=== PATIENT | female | born 1985 | race Caucasian/White ===

== ENCOUNTER 2016-07-05 14:44 | Emergency (ER) | payer OTHER ==
[2016-07-05 15:22] VITALS: BP 121/78; PULSE 93; RESP 18; TEMP 99.4
--- NOTE | 2016-07-05 15:43 | XR ---
EXAMINATION TYPE: XR ankle complete RT DATE OF EXAM: 07/05/2016 3:33 PM COMPARISON: NONE HISTORY: Fell down the stairs. Pain TECHNIQUE: 3 views FINDINGS: There is a small 5 mm nondisplaced chip fracture of the tip of the distal fibula. There is lateral soft tissue swelling. Ankle mortise is anatomic. There is mild calcaneal spurring. IMPRESSION: Chip fracture of the distal fibula.
--- NOTE | 2016-07-05 15:46 | XR ---
EXAMINATION TYPE: XR foot complete RT DATE OF EXAM: 07/05/2016 3:34 PM COMPARISON: NONE HISTORY: Fell down the stairs. Pain. TECHNIQUE: 3 views FINDINGS: There are transverse fractures of the necks of the third fourth and fifth metatarsal heads. There is no dislocation. There is a plantar calcaneal spur. IMPRESSION: Multiple metatarsal head fractures.
--- NOTE | 2016-07-05 15:50 | ED ---
Lower Extremity Injury HPI - General Chief Complaint: Extremity Injury, Lower Stated Complaint: rt foot injury Time Seen by Provider: 07/05/16 15:26 Source: patient, RN notes reviewed Mode of arrival: wheelchair Limitations: no limitations - History of Present Illness Initial Comments: 31-year-old female presents emergency Department chief complaint right foot and ankle injury. Patient states she's going on the stairs slipped twisting her ankle and injuring her distal foot. Patient states that it is very painful unable to ambulate. Patient denies any head injury no LOC. Patient offers no other complaints. - Related Data Home Medications Medication Instructions Recorded Confirmed Omeprazole [Omeprazole] 20 mg PO DAILY PRN 03/06/15 06/03/15 Sertraline [Zoloft] 50 mg PO HS 05/29/15 06/03/15 Previous Rx's Medication Instructions Recorded Acetaminophen-Codeine 300-30mg 2 tab PO Q6H PRN #30 tablet 06/03/15 [Tylenol #3] Hydrocodone/Acetaminophen [[place] 1 tab PO Q6HR PRN #20 tab 07/05/16 5-325] Allergies Allergy/AdvReac Type Severity Reaction Status Date / Time nitrofurantoin AdvReac numbness,ti Verified 07/05/16 15:22 [From Macrobid] ngling nitrofurantoin AdvReac numbness,ti Verified 07/05/16 15:22 macrocrystalline ngling [From Macrobid] Review of Systems ROS Statement: Those systems with pertinent positive or pertinent negative responses have been documented in the HPI. ROS Other: All systems not noted in ROS Statement are negative. Past Medical History Past Medical History: No Reported History History of Any Multi-Drug Resistant Organisms: MRSA Date of last positivie culture/infection: 2008 MDRO Source:: right groin Past Surgical History: Tubal Ligation Past Psychological History: Anxiety Smoking Status: Never smoker Past Alcohol Use History: Rare Past Drug Use History: None Reported - Past Family History Mother Additional Family Medical History / Comment(s): hypoglycemia General Exam Limitations: no limitations General appearance: alert, in no apparent distress Respiratory exam: Present: normal lung sounds bilaterally. Absent: respiratory distress, wheezes, rales, rhonchi, stridor Cardiovascular Exam: Present: regular rate, normal rhythm, normal heart sounds. Absent: systolic murmur, diastolic murmur, rubs, gallop, clicks Extremities exam: Present: other (Right foot there is tenderness to the distal aspect, no obvious deformity mild swelling no ecchymosis neurovascular intact tenderness over right lateral malleolus) Course Vital Signs 07/05/16 15:19 Temperature 99.4 F Pulse Rate 93 Respiratory 18 Rate Blood Pressure 121/78 O2 Sat by Pulse 99 Oximetry Procedures - Orthopedic Splinting/Casting Injury #1 Side: right Lower Extremity Injury Location: ankle, foot Lower Extremity Immobilizer: posterior splint Other Orthopedic Equipment: crutches Additional Comments: Patient's leg was neurovascularly intact before and after procedure Medical Decision Making - Medical Decision Making 31-year-old female presents emergency department for right foot and ankle injury. Patient has fracture of her second third and fourth digit along with right fibula fracture. Patient was placed on short leg splint. Patient has no evidence of Lisfranc fracture. Patient will be discharged follow-up with orthopedics patient was given prescription for crutches. Disposition Clinical Impression: Foot fracture, right, Ankle fracture, right Disposition: HOME SELF-CARE Condition: Stable Instructions: Foot Fracture in Adults (ED) Additional Instructions: Follow-up with orthopedics as directed.Please return to the Emergency Department if symptoms worsen or any other concerns. Prescriptions: Hydrocodone/Acetaminophen [[place] 5-325] 1 tab PO Q6HR PRN #20 tab PRN Reason: Pain Referrals: Doc Rocha MD [Primary Care Provider] - 1-2 days Deng Tran MD [STAFF PHYSICIAN] - 1-2 days Time of Disposition: 15:50
== END 2016-07-05 16:11 | disposition home or self-care (01) ==
LOC: EC 14:44
DX: S82.831A Other fracture of upper and lower end of right fibula, initial encounter for closed fracture (principal); S92.331A Displaced fracture of third metatarsal bone, right foot, initial encounter for closed fracture; S92.341A Displaced fracture of fourth metatarsal bone, right foot, initial encounter for closed fracture; S92.351A Displaced fracture of fifth metatarsal bone, right foot, initial encounter for closed fracture; F41.9 Anxiety disorder, unspecified; Z88.1 Allergy status to other antibiotic agents; X50.1XXA Overexertion from prolonged static or awkward postures, initial encounter
CPT/HCPCS: 29515; 99283

== ENCOUNTER → 2016-07-17 | Day surgery (SDC) | payer OTHER ==
[2016-07-15 09:29] VITALS: BMI 38.0
[~2016-07-17] MED LIST: DEXAMETHASONE SOD PHOSPHATE 10 MG/ML 1 ML VIAL IV ONE; HYDROcodone/APAP 5-325MG 1 EACH TAB PO ONE; HYDROcodone/APAP 5-325MG 1 EACH TAB PO PRN; HYDROmorphone (PF) 1 MG/ML ONE; HYDROmorphone 1 MG/ML 1 ML SYRINGE IVP PRN; LACTATED RINGERS 1,000 ML IV ONE; LACTATED RINGERS 1,000 ML IV SCH; LIDOCAINE 1% 20 ML VIAL (10MG/ML) FOR IV START INTRADERMA ONE; LIDOCAINE 1% 20 ML VIAL (10MG/ML) FOR IV START INTRADERMA PRN; LIDOCAINE 1% INJ 10MG/ML (20 ML MDV) ONE; MEPERIDINE 50 MG/ML SYRINGE IVP ONE; MIDAZOLAM 2 MG/2 ML VIAL IV PRN; MIDAZOLAM 2 MG/2 ML VIAL ONE; PROPOFOL 10 MG/ML 20 ML VIAL IV ONE; SCOPOLAMINE 1.5MG/72HR PATCH TRANSDERM ONE; SUCCINYLCHOLINE CHLORIDE 100 MG/5 ML SYR IV ONE; ceFAZolin 2 GM in SODIUM CHLORIDE 0.9% 100 ML IVPB ONE; diphenhydrAMINE 50 MG/ML 1 ML VIAL ONE; fentaNYL (PF) 50 MCG/ML 2 ML AMP ONE
[2016-07-17] MEDS: ONDANSETRON 4 MG/2 ML VIAL IVP ONE ×2 (11:35→15:32)
[2016-07-17] MEDS: HYDROmorphone 1 MG/ML 1 ML SYRINGE IVP PRN ×2 (13:35→15:28)
--- NOTE | 2016-07-17 14:46 | FL ---
EXAMINATION TYPE: FL guidance operating room, XR foot limited RT DATE OF EXAM: 07/17/2016 2:41 PM CLINICAL HISTORY: Right foot fracture third through fifth toes. TECHNIQUE: Fluoroscopy. Intraoperative limited views right foot. COMPARISON: Right foot x-ray July 05, 2016.. FINDINGS: Fluoroscopic guidance was provided during closed reduction external fixation procedure per formed by Dr. Smith. A total of 58 seconds of fluoroscopic time was utilized during the procedure and 2 spot intraoperative images are acquired. Intraoperative images acquired show placement of 3 external K wires through oblique fracture deformit ies of distal third through fifth metatarsals. Improved alignment is seen after reduction and fixatio n. IMPRESSION: As Above.
[2016-07-17 15:01] VITALS: TEMP 99.6
[2016-07-17 17:13] VITALS: BP 139/83; PULSE 122; RESP 18
--- NOTE | 2016-07-17 18:27 | P.OP ---
Date of Procedure: 07/17/16 Preoperative Diagnosis: Closed, displaced right third, fourth, and fifth metatarsal neck fractures Postoperative Diagnosis: Same Procedure(s) Performed: 1. Percutaneous reduction and pinning of right third metatarsal neck fracture 2. Percutaneous reduction and pinning of right fourth metatarsal neck fracture 3. Percutaneous reduction and pinning of right fifth metatarsal neck fracture Anesthesia: SARA Surgeon: Zeyad Smith Etiquette Coach #1: Maria E Ponce Estimated Blood Loss (ml): 25 IV fluids (ml): 600 Pathology: none sent Condition: stable Disposition: PACU Indications for Procedure: The patient is a 31-year-old female who was previously healthy presented to my office a week and a half ago following a fall down stairs. She sustained isolated injuries to her right ankle and foot. She was seen in the ER where x- rays showed a nondisplaced distal fibula fracture and third, fourth, and fifth metatarsal neck fractures. The patient was placed in a splint and follow-up was arranged in my office. On review of the x-rays in our office the metatarsal neck fractures were angulated and displaced, particularly the fourth and fifth metatarsal neck fractures. I do lengthy discussion with the patient and her on treatment. Due to the patient's young age, multiple metatarsal neck fractures, and angulation greater than 10 of her fourth and fifth metatarsal neck fracture I recommended percutaneous reduction and pinning. We discussed the potential risks and complication of surgery including but not limited to risk of anesthesia, risk of delayed wound healing, risk of superficial infection, risk of deep infection, risk of pin site infection, risk of fracture malunion, risk of fracture nonunion, risk of chronic pain, risk of chronic swelling, risk of need for further surgery, and generalized to satisfaction with surgery. The patient understands these risks and provided her verbal and written consent to go forward with surgery. Description of Procedure: The patient was identified in preoperative holding and the correct operative extremity was marked with my initials. The consent was reviewed and all questions were answered. The patient was then brought back to the operating room. She was transferred from the [facility] onto the operating room table and a general anesthetic was administered. A tourniquet was applied to the proximal aspect of the right leg but was not inflated at all during the procedure. All bony prominences were well-padded. Preoperative antibiotics were administered. The patient's right leg was then prepped and draped in standard sterile fashion. Prior to starting surgery timeout was performed identifying the correct patient, operative extremity, and procedure. A sterile radiolucent triangle was placed under the knee and a stack of towels placed under the foot to facilitate intraoperative C-arm imaging. I began by addressing the fifth metatarsal neck fracture. C-arm was brought into marked out the distal fifth metatarsal. A stab incision was made over the lateral aspect of the fifth metatarsal head. A dental pick was placed through the stab incision to use as a reduction aid. Once the fifth metatarsal head was aligned with the shaft a 0.0625 K wire was placed under the plantar aspect of the fifth toe and centered on the metatarsal head. The K wire was driven through the metatarsal head, across the fracture and into the fifth metatarsal shaft. The position of the K wire was checked on AP, oblique, and lateral C- arm shots. The fourth metatarsal neck fracture was then addressed. A stab incision was made in the webspace between the fourth and fifth toe. A dental pick was used to percutaneously reduce the fourth metatarsal head fragment. Once it was aligned with the shaft a 0.0625 K wire was placed under the plantar aspect of the fourth toe and centered on the metatarsal head. Under direct C-arm visualization the K wire was driven across the fracture site and into the fourth metatarsal shaft. C-arm was used to verify reduction in the AP, oblique , and lateral shots. The third metatarsal neck fracture was then addressed. A stab incision was made in the webspace between the third and fourth toe. A dental pick was used to percutaneously reduce the third metatarsal head fragment. Once it was aligned with the shaft a 0.0625 K wire was placed under the plantar aspect of the third toe and centered on the metatarsal head. Under direct C-arm visualization the K wire was driven across the fracture site and into the third metatarsal shaft. C-arm was used to verify reduction in the AP, oblique, and lateral shots. After final C-arm shots were taken to verify reduction of the fractures and position of the K wires the K wires were bent and cut outside the skin. Protective caps were placed over all 3 K wires. The stab incisions over the dorsal aspect of the foot were closed using interrupted 3-0 nylon horizontal mattress stitches. A sterile dressing consisting of Betadine soaked Adaptic, 4 x 4, and web roll was applied. The patient was placed in a bulky Hector type splint. She was awoken from her anesthetic and transferred to the [facility]. She was brought to PACU in stable condition having tolerated the procedure well.
== END | disposition home or self-care (01) ==
LOC: OR 10:46
PROVIDERS: ATTEND Orthopaedic Surgery
DX: S92.331A Displaced fracture of third metatarsal bone, right foot, initial encounter for closed fracture (principal); S92.341A Displaced fracture of fourth metatarsal bone, right foot, initial encounter for closed fracture; S92.351A Displaced fracture of fifth metatarsal bone, right foot, initial encounter for closed fracture; W10.8XXA Fall (on) (from) other stairs and steps, initial encounter; S82.64XD Nondisplaced fracture of lateral malleolus of right fibula, subsequent encounter for closed fracture with routine healing; W10.8XXD Fall (on) (from) other stairs and steps, subsequent encounter; Z79.1 Long term (current) use of non-steroidal anti-inflammatories (NSAID); Z79.891 Long term (current) use of opiate analgesic; Z88.1 Allergy status to other antibiotic agents
CPT/HCPCS: 81025; 73620; 28476 ×3; C1713; J2250; J1200; J1100; J2175; J0690; J2405; J2001; J3010; J1170; J0330; J2704

== ENCOUNTER 2019-03-19 01:13 | Emergency (ER) | payer OTHER ==
[2019-03-19 01:30] VITALS: RESP 18
--- NOTE | 2019-03-19 01:48 | XR ---
EXAMINATION TYPE: XR chest 2V DATE OF EXAM: 03/19/2019 COMPARISON: NONE HISTORY: Cough TECHNIQUE: 2 views FINDINGS: Heart and mediastinum are normal. Lungs are clear. Diaphragm is normal. Bony thorax appears normal. IMPRESSION: Normal chest
[2019-03-19] MEDS ORDERED: predniSONE 50 MG TAB PO STA (03:19)
--- NOTE | 2019-03-19 03:19 | ED ---
General Adult HPI - General Chief complaint: Upper Respiratory Infection Stated complaint: URI Time Seen by Provider: 03/19/19 02:56 Source: patient, RN notes reviewed, old records reviewed Mode of arrival: ambulatory Limitations: no limitations - History of Present Illness Initial comments: 34-year-old female patient presents to the. Chief complaint approximately 2 weeks of cough, waxing and waning fevers congestion. Patient recently completed a course of amoxicillin for possible pneumonia. Denies a chance of being secondary tubal ligation. Denies any risk factors for PE. The force that her back and her chest hurt while coughing, denies any chest pain at rest. Denies any other complaints at this time. Systemic: Pt denies fatigue, fever/chills, rash. Pt denies weakness, night sweats, weight loss. Neuro: Pt denies headache, visual disturbances, syncope or pre-syncope. HEENT: Pt denies ocular discharge or irritation, otalgia, rhinorrhea, pharyngitis or notable lymphadenopathy. Cardiopulmonary: Pt denies chest pain, SOB, heart palpitations, dyspnea on exertion. Abdominal/GI: Pt denies abdominal pain, n/v/d. : Pt denies dysuria, burning w/ urination, frequency/urgency. Denies new onset urinary or bowel incontinence. MSK: Pt denies myalgia, loss of strength or function in extremities. Neuro: Pt denies new onset weakness, paresthesias. - Related Data Home Medications Medication Instructions Recorded Confirmed Ibuprofen [Motrin] 600 mg PO Q6HR PRN 07/15/16 07/15/16 Previous Rx's Medication Instructions Recorded Hydrocodone/Acetaminophen [[place] 1 tab PO Q6HR PRN #20 tab 07/05/16 5-325] Docusate [Colace] 100 mg PO BID #28 capsule 07/17/16 HYDROcodone/APAP 5-325MG [[place] 1 - 2 tab PO Q6HR PRN #50 tab 07/17/16 5-325] Sulfamethox-Tmp 800-160Mg [Bactrim 1 tab PO Q12HR #28 tab 07/17/16 DS 800-160 mg] Albuterol Inhaler [Ventolin Hfa 1 - 2 puff INHALATION Q4-6H PRN #1 03/19/19 Inhaler] inhaler predniSONE 50 mg PO DAILY #4 tab 03/19/19 Allergies Allergy/AdvReac Type Severity Reaction Status Date / Time nitrofurantoin AdvReac numbness,ti Verified 07/15/16 09:10 [From Macrobid] ngling nitrofurantoin AdvReac numbness,ti Verified 07/15/16 09:10 macrocrystalline ngling [From Macrobid] Review of Systems ROS Statement: Those systems with pertinent positive or pertinent negative responses have been documented in the HPI. ROS Other: All systems not noted in ROS Statement are negative. Past Medical History Past Medical History: GERD/Reflux, Musculoskeletal Disorder Additional Past Medical History / Comment(s): FRACTURES 3,4,5 TOES RT FOOT. History of Any Multi-Drug Resistant Organisms: MRSA Date of last positivie culture/infection: 2008 MDRO Source:: right groin Past Surgical History: Tubal Ligation Past Anesthesia/Blood Transfusion Reactions: Family History of Problems w/ Anesthesia Additional Past Anesthesia/Blood Transfusion Reaction / Comment(s): MOTHER HAS SEVERE PONV. Past Psychological History: Depression Smoking Status: Never smoker - Past Family History Father Family Medical History: Cancer Mother Additional Family Medical History / Comment(s): hypoglycemia General Exam - General Exam Comments Initial Comments: Constitutional: NAD, AOX3, Pt has pleasant affect. HEENT: NC/AT, trachea midline, neck supple, no lymphadenopathy. Posterior pharynx non erythematous, without exudates. External ears appear normal, without discharge. Mucous membranes moist. Eyes PERRLA, EOM intact. There is no scleral icterus. No pallor noted. Cardiopulmonary: RRR, no murmurs, rubs or gallops, no JVD noted. Lungs CTAB in anterior and posterior grove. No peripheral edema. Abdominal exam: Abdomen soft and non-distended. Abdomen non-tender to palpation in all 4 quadrants. Bowel sounds active in LLQ. No hepatosplenomegaly. No ecchymosis Neuro: CN II-XII grossly intact. No nuchal rigidity. No raccon eyes, no salas sign, no hemotympanum. No cervical spinal tenderness. MSK: No posterior calf tenderness bilaterally, homans sign negative bilaterally. Posterior tibialis and radial pulse +2 bilaterally. Sensation intact in upper and lower extremities. Full active ROM in upper and lower extremities, 5/5 stregnth. Limitations: no limitations Course Vital Signs 03/19/19 01:26 Temperature 98.6 F Pulse Rate 91 Respiratory 18 Rate Blood Pressure 153/92 O2 Sat by Pulse 97 Oximetry Medical Decision Making - Medical Decision Making 34-year-old female patient presents to ED for chief complaint approximately 2 weeks of cough. Patient will signs are stable, afebrile. Physical exam didn't display acute pathology. Lungs clear to auscultation bilaterally. Chest x-ray is negative, influenza negative. Patient is PERC negative. Patient likely dealing with a viral bronchitis examined him. We'll discharge with steroids and when necessary breathing treatments. Will follow up with primary care for a trial return to ER if condition worsens. Case discussed with Dr. Rivera. - Lab Data Lab Results 03/19/19 Range/Units 01:30 Influenza Type A RNA Not Detected (Not Detectd) Influenza Type B (PCR) Not Detected (Not Detectd) Disposition Clinical Impression: Cough, Bronchitis Disposition: HOME SELF-CARE Condition: Stable Instructions (If sedation given, give patient instructions): Acute Cough (ED), Acute Bronchitis (ED) Additional Instructions: Take medications as directed. Use inhaler as needed. Follow-up with primary care provider tomorrow. Return to ER if condition worsens. Prescriptions: predniSONE 50 mg PO DAILY #4 tab Albuterol Inhaler [Ventolin Hfa Inhaler] 1 - 2 puff INHALATION Q4-6H PRN #1 inhaler PRN Reason: Cough Is patient prescribed a controlled substance at d/c from ED?: No Referrals: Doc Rocha MD [Primary Care Provider] - 1-2 days
[2019-03-19 03:21] VITALS: BP 138/87; PULSE 89; TEMP 98.1
== END 2019-03-19 03:37 | disposition home or self-care (01) ==
LOC: EC 01:13
DX: J40 Bronchitis, not specified as acute or chronic (principal); Z88.1 Allergy status to other antibiotic agents
CPT/HCPCS: 87502; 71046; 99284; J7512

== ENCOUNTER 2022-09-09 15:06 | Inpatient (IN) | payer OTHER ==
[2022-09-09] MEDS ORDERED: SODIUM CHLORIDE 0.9% 1,000 ML IV STA (18:10)
[2022-09-09 18:54] LABS: Basophils # (A) 0.1 k/uL (0-0.2); Basophils % (A) 0 %; Eosinophils # (A) 0.1 k/uL (0-0.7); Eosinophils % (A) 1 %; HCT 43.1 % (34.0-46.0); HGB 14.5 gm/dL (11.4-16.0); Lymphocytes # (A) 1.5 k/uL (1.0-4.8); Lymphocytes % (A) 11 %; MCH 28.6 pg (25.0-35.0); MCHC 33.6 g/dL (31.0-37.0); MCV 85.2 fL (80.0-100.0); Mean Platelet Volume 7.3; Monocytes # (A) 0.3 k/uL (0-1.0); Monocytes % (A) 2 %; Neutrophils # (A) 12.1 k/uL (1.3-7.7); Neutrophils % (A) 86 %; Platelet Count 250 k/uL (150-450); RBC 5.06 m/uL (3.80-5.40); RDW 13.6 % (11.5-15.5)
[2022-09-09 19:08] LABS: ALT 28 U/L (4-34); AST 31 U/L (14-36); Acetaminophen <10.0 ug/mL; African American GFR (CKD) >90 (>60 ml/min/1.73 sqM); Albumin 4.8 g/dL (3.5-5.0); Alcohol <10 mg/dL; Alkaline Phosphatase 97 U/L (38-126); Anion Gap 13 mmol/L; Blood Urea Nitrogen 16 mg/dL (7-17); Calcium 9.5 mg/dL (8.4-10.2); Carbon Dioxide 23 mmol/L (22-30); Chloride 103 mmol/L (98-107); Glucose 98 mg/dL (74-99); Magnesium 2.3 mg/dL (1.6-2.3); Non-African American GFR(CKD) 89 (>60 ml/min/1.73 sqM); Potassium 3.9 mmol/L (3.5-5.1); Salicylate <1.0 mg/dL; Sodium 139 mmol/L (137-145); Total Bilirubin 0.4 mg/dL (0.2-1.3); Total Protein 8.2 g/dL (6.3-8.2)
--- NOTE | 2022-09-09 19:14 | CT ---
EXAMINATION TYPE: CT brain wo con CT DLP: 1098.4 mGycm, Automated exposure control for dose reduction was used. DATE OF EXAM: 09/09/2022 6:25 PM COMPARISON: None. CLINICAL INDICATION:Female, 37 years old with history of seizure activity, Seizure activity TECHNIQUE: Brain: Axial CT images of the brain were obtained with coronal and sagittal reformats created and rev iewed. Contrast used: None. Oral contrast used: None. FINDINGS: Brain: Extra-axial spaces: No abnormal extra-axial fluid collections. Ventricular system: Within normal limits Cerebral parenchyma: No acute intraparenchymal hemorrhage or mass effect. The daniel-white junction is well differentiated. Cerebellum: Unremarkable. Mass effect: No evidence of midline shift. Intracranial vasculature: unremarkable Soft tissues: Normal. Calvarium/osseous structures: No depressed skull fracture. Paranasal sinuses and mastoid air cells: Mild scattered paranasal sinus disease. Visualized orbits: Orbital contents are intact. IMPRESSION: No acute intracranial process.
[2022-09-09 20:18] LABS: Amphetamine Screen,Urine Not Detected (NotDetected); Barbiturate Screen,Urine Not Detected (NotDetected); Benzodiazepines Screen,Urine Detected (NotDetected); Cocaine Screen,Urine Not Detected (NotDetected); Methadone Screen, Urine Not Detected (NotDetected); Opiate Screen,Urine Not Detected (NotDetected); Oxycodone Screen, Urine Not Detected (NotDetected); Phencyclidine Screen,Urine Not Detected (NotDetected); Tricyclic Antidepressant,Urine Not Detected (NotDetected); Urn Cannabinoid Scrn Not Detected (NotDetected)
--- NOTE | 2022-09-09 20:24 | ED ---
Seizure HPI - General Chief Complaint: Seizure Stated Complaint: seizure Time Seen by Provider: 09/09/22 17:26 Source: patient, RN notes reviewed, old records reviewed Mode of arrival: ambulatory Limitations: no limitations - History of Present Illness Initial Comments: This is a 37-year-old female DF for evaluation patient resents today for evaluation regards to seizure history of no prior seizures. Patient presents today for first seizure, patient is on multiple medications that could lead her to have seizures per patient. Patient has no other complaints. Patient has had some voluntary or involuntary movements lately. Family medical with concern for possible seizures. Patient didn't bite her tongue today, seizure was witnessed by her son Complaint: seizure, shaking -: minutes(s) Description of Episode: loss of consciousness, tonic-clonic movement, post-event confusion, other (Tongue laceration) -: minutes(s) Witnessed: yes - by bystander Trauma: Yes Seizure History: none Possible Precipitating Event: none Associated Symptoms: confusion Treatments Prior to Arrival: none - Related Data Home Medications Medication Instructions Recorded Confirmed buPROPion XL [Wellbutrin XL] 150 mg PO HS 01/19/22 09/09/22 Albuterol Inhaler [Ventolin Hfa 1 - 2 puff INHALATION RT-Q6H PRN 09/09/22 09/09/22 Inhaler] Cetirizine HCl 10 mg PO HS 09/09/22 09/09/22 FLUoxetine HCL [PROzac] 40 mg PO HS 09/09/22 09/09/22 Montelukast [Singulair] 10 mg PO HS 09/09/22 09/09/22 Semaglutide [Wegovy] 0.5 mg SQ FR 09/09/22 09/09/22 Allergies Allergy/AdvReac Type Severity Reaction Status Date / Time sulfamethoxazole Allergy Rash/Hives Verified 09/09/22 19:51 [From Bactrim] trimethoprim [From Bactrim] Allergy Rash/Hives Verified 09/09/22 19:51 latex AdvReac Itching Verified 09/09/22 19:51 nitrofurantoin AdvReac numbness,ti Verified 09/09/22 19:51 [From Macrobid] ngling nitrofurantoin AdvReac numbness,ti Verified 09/09/22 19:51 macrocrystalline ngling [From Macrobid] Review of Systems ROS Statement: Those systems with pertinent positive or pertinent negative responses have been documented in the HPI. ROS Other: All systems not noted in ROS Statement are negative. Past Medical History Past Medical History: GERD/Reflux, Musculoskeletal Disorder Additional Past Medical History / Comment(s): FRACTURES 3,4,5 TOES RT FOOT. History of Any Multi-Drug Resistant Organisms: MRSA Date of last positivie culture/infection: 2008 MDRO Source:: right groin Past Surgical History: Orthopedic Surgery, Tubal Ligation Additional Past Surgical History / Comment(s): reconstrution of rt foot Past Anesthesia/Blood Transfusion Reactions: Family History of Problems w/ Anesthesia Additional Past Anesthesia/Blood Transfusion Reaction / Comment(s): MOTHER HAS SEVERE PONV. Past Psychological History: Anxiety, Depression Smoking Status: Never smoker - Past Family History Father Family Medical History: Cancer Mother Additional Family Medical History / Comment(s): hypoglycemia General Exam Limitations: no limitations General appearance: alert, in no apparent distress Head exam: Present: atraumatic, normocephalic, normal inspection Eye exam: Present: normal appearance, PERRL, EOMI. Absent: scleral icterus, conjunctival injection, periorbital swelling ENT exam: Present: normal exam, mucous membranes moist Neck exam: Present: normal inspection. Absent: tenderness, meningismus, lym phadenopathy Respiratory exam: Present: normal lung sounds bilaterally. Absent: respiratory distress, wheezes, rales, rhonchi, stridor Cardiovascular Exam: Present: regular rate, normal rhythm, normal heart sounds. Absent: systolic murmur, diastolic murmur, rubs, gallop, clicks GI/Abdominal exam: Present: soft, normal bowel sounds. Absent: distended, tenderness, guarding, rebound, rigid Extremities exam: Present: normal inspection, full ROM, normal capillary refill. Absent: tenderness, pedal edema, joint swelling, calf tenderness Back exam: Present: normal inspection Neurological exam: Present: alert, oriented X3, CN II-XII intact Psychiatric exam: Present: normal affect, normal mood Skin exam: Present: warm, dry, intact, normal color. Absent: rash Course Vital Signs 09/09/22 09/09/22 09/09/22 15:11 17:38 22:19 Temperature 97.4 F L 98.6 F 98.5 F Pulse Rate 117 H 108 H 97 Respiratory 20 18 16 Rate Blood Pressure 161/87 146/90 109/60 O2 Sat by Pulse 99 98 98 Oximetry - Reevaluation(s) Reevaluation #1: 09/09/22 22:44 Medical records reviewed Reevaluation #2: 09/09/22 22:44 No recurrent seizures Reevaluation #3: 09/09/22 22:44 Patient informed results questions have been answered Reevaluation #4: 09/09/22 22:44 Was pt. sent in by a medical professional or institution? @ -no Did you speak to anyone other than the patient for history? @ -no Did you review nursing and triage notes? @ -agree Were old charts reviewed? @ -no Differential Diagnosis? @ -prior EKG interpreted by me (3pts min.)? @ -yes X-rays interpreted by me (1pt min.)? @ -no CT interpreted by me (1pt min.)? @ -no U/S interpreted by me (1pt. min.)? @ -no What testing was considered but not performed? (CT, X-rays, U/S, labs)? Why? @ -no What meds were considered but not given? Why? @ -no Did you discuss the management of the patient with other professionals? @ -no Did you reconcile home meds? @ -no Was smoking cessation discussed for >3mins.? @ -no Was critical care preformed (if so, how long)? @ -no Were there social determinants of health that impacted care today? How? (Homelessness, low income, unemployed, alcoholism, drug addiction, transportation, low edu. Level, literacy, decrease access to med. care, usp, rehab)? @ -no Was there de-escalation of care discussed even if they declined? (Discuss DNR or withdrawal of care, Hospice)? @ -no What co-morbidities impacted this encounter? (DM, HTN, Smoking, COPD, CAD, Cancer, CVA, Hep., AIDS, mental health diagnosis, sleep apnea, morbid obesity)? @ -none Was patient admitted / discharged? @ - Undiagnosed new problem with uncertain prognosis? @ -no Drug Therapy requiring intensive monitoring for toxicity (Heparin, Nitro, Insulin, Cardizem)? @ -no Were any procedures done? @ -no Diagnosis/symptom? @ - Acute, or Chronic, or Acute on Chronic? @ -no Uncomplicated (without systemic symptoms) or Complicated (systemic symptoms)? @ -uncomplicated Side effects of treatment? @ -no Exacerbation, Progression, or Severe Exacerbation] @ -no Poses a threat to life or bodily function? @ -no Reevaluation #5: 09/09/22 22:44 Differential Seizure: Recurrent seizure disorder, febrile seizure, alcohol withdrawal, stimulants, meningitis, encephalitis, intercranial hemorrhage, intracranial tumor, stroke, eclampsia, thyrotoxicosis, hypocalcemia, hyponatremia, hypernatremia, hypomagnesemia, psychogenic, this is not meant to be an all-inclusive list. Medical Decision Making - Medical Decision Making 37 female DEL with new onset seizure we'll admit for neurology consultation - Lab Data Result diagrams: 09/09/22 18:29 09/09/22 18:29 Lab Results 09/09/22 09/09/22 09/09/22 Range/Units 18:29 18:29 18:29 WBC 14.0 H (3.8-10.6) k/uL RBC 5.06 (3.80-5.40) m/uL Hgb 14.5 (11.4-16.0) gm/dL Hct 43.1 (34.0-46.0) % MCV 85.2 (80.0-100.0) fL MCH 28.6 (25.0-35.0) pg MCHC 33.6 (31.0-37.0) g/dL RDW 13.6 (11.5-15.5) % Plt Count 250 (150-450) k/uL MPV 7.3 Neutrophils % 86 % Lymphocytes % 11 % Monocytes % 2 % Eosinophils % 1 % Basophils % 0 % Neutrophils # 12.1 H (1.3-7.7) k/uL Lymphocytes # 1.5 (1.0-4.8) k/uL Monocytes # 0.3 (0-1.0) k/uL Eosinophils # 0.1 (0-0.7) k/uL Basophils # 0.1 (0-0.2) k/uL Sodium 139 (137-145) mmol/L Potassium 3.9 (3.5-5.1) mmol/L Chloride 103 (98-107) mmol/L Carbon Dioxide 23 (22-30) mmol/L Anion Gap 13 mmol/L BUN 16 (7-17) mg/dL Creatinine 0.86 (0.52-1.04) mg/dL Est GFR (CKD-EPI)AfAm >90 (>60 ml/min/1.73 sqM) Est GFR (CKD-EPI)NonAf 89 (>60 ml/min/1.73 sqM) Glucose 98 (74-99) mg/dL Calcium 9.5 (8.4-10.2) mg/dL Magnesium 2.3 (1.6-2.3) mg/dL Total Bilirubin 0.4 (0.2-1.3) mg/dL AST 31 (14-36) U/L ALT 28 (4-34) U/L Alkaline Phosphatase 97 (38-126) U/L Total Protein 8.2 (6.3-8.2) g/dL Albumin 4.8 (3.5-5.0) g/dL Salicylates <1.0 mg/dL Urine Opiates Screen Not Detected (NotDetected) Ur Oxycodone Screen Not Detected (NotDetected) Urine Methadone Screen Not Detected (NotDetected) Ur Propoxyphene Screen Not Detected (NotDetected) Acetaminophen <10.0 ug/mL Ur Barbiturates Screen Not Detected (NotDetected) U Tricyclic Antidepress Not Detected (NotDetected) Ur Phencyclidine Scrn Not Detected (NotDetected) Ur Amphetamines Screen Not Detected (NotDetected) U Methamphetamines Scrn Not Detected (NotDetected) U Benzodiazepines Scrn Detected H (NotDetected) Urine Cocaine Screen Not Detected (NotDetected) U Marijuana (THC) Screen Not Detected (NotDetected) Serum Alcohol <10 mg/dL - EKG Data -: EKG Interpreted by Me (EKG sinus tach 107. W[place] 173 QRS 96 QTc 412) - Radiology Data Radiology results: report reviewed (CT brain is negative for acute disease), image reviewed Disposition Clinical Impression: New onset seizure Disposition: ADMITTED IP TO THIS HOSP Condition: Good Is patient prescribed a controlled substance at d/c from ED?: No Time of Disposition: 21:40
[2022-09-09] MEDS ORDERED: MORPHINE SULFATE 4 MG/ML SYRINGE IV PRN (21:38)
[2022-09-09] MEDS ORDERED: NALOXONE 0.4 MG/ML 1 ML VIAL IV PRN (21:38)
[2022-09-09] MEDS ORDERED: ONDANSETRON 4 MG/2 ML VIAL IVP PRN (21:38)
[2022-09-09] MEDS: SODIUM CHLORIDE 0.9% 1,000 ML IV SCH (22:16)
[2022-09-09] MEDS: ACETAMINOPHEN TAB 325 MG TAB PO PRN (23:28)
[2022-09-10] MEDS: SODIUM CHLORIDE 0.9% 1,000 ML IV SCH ×2 (05:31→23:21)
[2022-09-10] MEDS ORDERED: ALBUTEROL NEBULIZED 2.5 MG/3 ML INHALATION PRN (06:04)
[2022-09-10 07:11] LABS: Basophils % (A) 0 %; Eosinophils # (A) 0.1 k/uL (0-0.7); Eosinophils % (A) 1 %; HCT 39.2 % (34.0-46.0); HGB 13.2 gm/dL (11.4-16.0); Lymphocytes # (A) 2.7 k/uL (1.0-4.8); Lymphocytes % (A) 30 %; MCH 29.1 pg (25.0-35.0); MCHC 33.7 g/dL (31.0-37.0); MCV 86.5 fL (80.0-100.0); Mean Platelet Volume 7.4; Monocytes # (A) 0.3 k/uL (0-1.0); Monocytes % (A) 3 %; Neutrophils # (A) 5.8 k/uL (1.3-7.7); Neutrophils % (A) 64 %; Platelet Count 174 k/uL (150-450); RBC 4.53 m/uL (3.80-5.40); RDW 13.7 % (11.5-15.5)
[2022-09-10 07:34] LABS: ALT 24 U/L (4-34); AST 36 U/L (14-36); African American GFR (CKD) >90 (>60 ml/min/1.73 sqM); Albumin 3.7 g/dL (3.5-5.0); Alkaline Phosphatase 79 U/L (38-126); Anion Gap 9 mmol/L; Blood Urea Nitrogen 12 mg/dL (7-17); Calcium 8.5 mg/dL (8.4-10.2); Carbon Dioxide 24 mmol/L (22-30); Chloride 105 mmol/L (98-107); Glucose 86 mg/dL (74-99); Magnesium 2.2 mg/dL (1.6-2.3); Non-African American GFR(CKD) >90 (>60 ml/min/1.73 sqM); Phosphorus 3.1 mg/dL (2.5-4.5); Potassium 3.8 mmol/L (3.5-5.1); Sodium 138 mmol/L (137-145); Total Bilirubin 0.4 mg/dL (0.2-1.3); Total Protein 6.4 g/dL (6.3-8.2)
--- NOTE | 2022-09-10 11:56 | P.CNNES ---
History of Present Illness Consult date: 09/10/22 Requesting physician: Adrián Scherer Reason for Consult: seizure History of Present Illness: This is a 37-year-old woman with history of depression, anxiety who presented because of seizure-like activity. Patient's is at bedside with helps with some of the history. It seems yesterday in the afternoon around 2H patient was sitting on a couch and the she had witnessed seizure-like activity by her 9-year-old son. According to and her son described as she was having shaking of her extremities unknown obturation and was unresponsive and the she was making weird noises the son appreciated. Then was post ictal confusion for couple minutes. Patient had a tongue bite on the left side. She denies any urinary or bowel incontinence. She denied any warning the signs prior to the episode. She said for the past 1 year she's been having intermittent episode of hand jerk that her hand flails and she drops objects and then she would be confused after the episode briefly again she's been having it for the past 1 year but is becoming more frequent for the past 2-3 months. She denies any diagnosis of seizure in the past. She denies any seizure as a child. She is on Wellbutrin and she stated she's been on it for a long time. Denies any alcohol use or any illicit drug use. Currently she has a mild headache throughout the head and she states is 2-3 feels dull. Denies any vomiting or or nausea denies any focal weakness or visual disturbance. She does have family history of seizure and her father had brain cancer in his 30s and a result . He has seizure from mod as a result of his brain cancer. She states that her history was normal and was vaginal no complication to her knowledge. Some of the workup during his hospital visit consisted of: Temperature has been within normal limits. Initial white blood cells 14.0 thousand and repeated is normal. Chemistry panel is within normal limits. CT of the head is reported as no acute intracranial process. I personally reviewed the CT report Urine drug screen is positive for benzos otherwise rest is not detected. Review of Systems Review of system: The 12 point system was reviewed and apparent positive and negative per HPI. Past Medical History Past Medical History: GERD/Reflux, Musculoskeletal Disorder Additional Past Medical History / Comment(s): FRACTURES 3,4,5 TOES RT FOOT. History of Any Multi-Drug Resistant Organisms: MRSA Date of last positivie culture/infection: 2008 MDRO Source:: right groin Past Surgical History: Orthopedic Surgery, Tubal Ligation Additional Past Surgical History / Comment(s): reconstrution of rt foot Past Anesthesia/Blood Transfusion Reactions: Family History of Problems w/ Anesthesia Additional Past Anesthesia/Blood Transfusion Reaction / Comment(s): MOTHER HAS SEVERE PONV. Past Psychological History: Anxiety, Depression Smoking Status: Never smoker - Past Family History Father Family Medical History: Cancer Mother Additional Family Medical History / Comment(s): hypoglycemia Medications and Allergies Home Medications Medication Instructions Recorded Confirmed Type buPROPion XL [Wellbutrin XL] 150 mg PO HS 01/19/22 09/09/22 History Albuterol Inhaler [Ventolin Hfa 1 - 2 puff INHALATION RT-Q6H PRN 09/09/22 09/09/22 History Inhaler] Cetirizine HCl 10 mg PO HS 09/09/22 09/09/22 History FLUoxetine HCL [PROzac] 40 mg PO HS 09/09/22 09/09/22 History Montelukast [Singulair] 10 mg PO HS 09/09/22 09/09/22 History Semaglutide [Wegovy] 0.5 mg SQ FR 09/09/22 09/09/22 History Allergies Allergy/AdvReac Type Severity Reaction Status Date / Time sulfamethoxazole Allergy Rash/Hives Verified 09/09/22 19:51 [From Bactrim] trimethoprim [From Bactrim] Allergy Rash/Hives Verified 09/09/22 19:51 latex AdvReac Itching Verified 09/09/22 19:51 nitrofurantoin AdvReac numbness,ti Verified 09/09/22 19:51 [From Macrobid] ngling nitrofurantoin AdvReac numbness,ti Verified 09/09/22 19:51 macrocrystalline ngling [From Macrobid] Physical Examination - Vital Signs Vital Signs: Vital Signs Temp Pulse Pulse Resp BP BP Pulse Ox 09/10/22 08:00 84 15 09/10/22 07:10 97.6 F 84 15 134/82 100 09/10/22 01:45 98.3 F 74 16 143/84 98 09/09/22 22:50 98.2 F 94 17 149/97 99 09/09/22 22:19 98.5 F 97 16 109/60 98 09/09/22 17:38 98.6 F 108 H 18 146/90 98 09/09/22 15:11 97.4 F L 117 H 20 161/87 99 Intake and Output 09/09/22 09/10/22 09/10/22 22:59 06:59 14:59 Intake Total 118 Balance 118 Intake: Oral 118 Other: Voiding Method Toilet Toilet # Voids 1 Weight 117.934 kg GENERAL: The patient is lying in bed and is not in acute distress. NEUROLOGICAL: Higher mental function: The patient is awake, alert, oriented to self, place and time. Patient is following commands. No aphasia and no neglect. Cranial nerves: The pupils are round, equal and reactive to light and accommodation. Visual grove are full to confrontation throughout. Extraocular movement is intact no nystagmus is noted. Facial sensation is normal to touch throughout. The facial strength is normal throughout. Hearing is normal cassi aterally to hand rub. Tongue is midline and moved [id number] without any difficulty. Has left mid/posterior tongue bite laterally. No dysarthria is noted. Shoulder shrug is normal bilaterally. Motor: The strength is 5 over 5 throughout. Normal tone and bulk. Cerebellum: Normal finger to nose bilaterally. Sensation: Sensation is normal to touch throughout. Reflexes (right/left): 2+ throughout. Plantars are downgoing bilaterally. Results - Laboratory Findings CBC and BMP: 09/10/22 06:51 09/10/22 06:51 Abnormal Lab Findings: Abnormal Labs 09/09/22 09/09/22 18:29 18:29 WBC 14.0 H Neutrophils # 12.1 H U Benzodiazepines Scrn Detected H Assessment and Plan Assessment: This is an 37-year-old woman with history of depression and anxiety who presented that because of seizure-like activity witnessed by the her son on 09/09/2022. She had that shaking of extremities unresponsive with the left lateral tongue and post ictal confusion. Patient has been having current episode of bilateral hand jerks and would drop objects for the past 1 year but been more frequent for the last 2-3 month period. New onset seizure (and her episodes of hand jerks with brief confusion for the past one year but more frequent for past 2-3 months are likely seizures). History of depression History of anxiety Family history of brain cancer (father in his 30's and result had seizure and at young age) Plan: I ordered a routine EEG Ordered MRI of the brain with and without to rule out any brain mass especially with the Young family history of brain cancer Placed the patient on Keppra 500 mg 1 tablet twice a day and notified the patient about the side effects of mood/behavior changes. If she does then will switch to possible Lamictal (which is slow titration) or Vimpat. On seizure precautions seizure pads I consulted psychiatry team to modify her psychiatric medication and I recommend to avoid Wellbutrin since the lowers threshold of seizures. Patient was notified that per [place] DM because of her seizures, to avoid driving for 6 month until seizure-free, avoid heights, avoid swimming unassisted, avoid heavy machinery. We'll defer the rest of the medical management to primary team Upon discharge recommend the patient to follow-up with a neurologist as an outpatient within 1-2 weeks. Plan discussed with the patient and her was at bedside Thank you for the consultation Time with Patient: Greater than 30
[2022-09-10] MEDS: levETIRAcetam 500 MG TAB PO SCH ×2 (13:12→20:26)
--- NOTE | 2022-09-10 13:45 | P.CN ---
Psychiatric Consult - . Consult date: 09/10/22 Consult:: 09/10/22 13:45 IDENTIFYING DATA: This patient is a , unemployed, 37-year-old female with significant history of depression who presents to the hospital on 09/09/2022 for new onset seizure. HISTORY OF PRESENT ILLNESS: The patient presented to the hospital on 09/09/2022, after a new onset seizure. The patient reported that at approximately 2:40 PM yesterday, she felt that she passed out. However she came to in a few minutes with blood on her chin and blood in her tongue after a reported seizure. The patient reports that when she came to, her daughter was worried and expressed concern that "wilian was dying." The patient denies any enuresis. She does report some postictal confusion. The patient reports that this is her first seizure. She denies any history of substance abuse. She reports no history of head trauma. In regards to her mood, the patient reports that she does have a significant history of depression that started after her brother in 2018. However, she does not report any significant symptoms of depression at this time. She remains future and goal oriented with a strong desire to live for herself and for her family. She is denying any suicidal or homicidal ideation, intention, and/or plan. She reports no prior attempts at suicide. She denies any auditory or visual hallucinations. She denies any paranoia or other delusions. PAST PSYCHIATRIC HISTORY: Patient has a history of depression. Patient is currently prescribed regimen of Prozac and Wellbutrin. Patient denies any previous psychiatric hospitalizations. Patient denies any psychiatric outpatient follow-up. Patient denies any history of suicide attempts in the past. PAST MEDICAL HISTORY: Past Medical History: GERD/Reflux, Musculoskeletal Disorder Additional Past Medical History / Comment(s): FRACTURES 3,4,5 TOES RT FOOT. History of Any Multi-Drug Resistant Organisms: MRSA Date of last positivie culture/infection: 2008 MDRO Source:: right groin Past Surgical History: Orthopedic Surgery, Tubal Ligation Additional Past Surgical History / Comment(s): reconstrution of rt foot Past Anesthesia/Blood Transfusion Reactions: Family History of Problems w/ Anesthesia Additional Past Anesthesia/Blood Transfusion Reaction / Comment(s): MOTHER HAS SEVERE PONV. Past Psychological History: Anxiety, Depression Smoking Status: Never smoker ALLERGIES: Allergies Allergy/AdvReac Type Severity Reaction Status Date / Time sulfamethoxazole Allergy Rash/Hives Verified 09/09/22 19:51 [From Bactrim] trimethoprim [From Bactrim] Allergy Rash/Hives Verified 09/09/22 19:51 latex AdvReac Itching Verified 09/09/22 19:51 nitrofurantoin AdvReac numbness,ti Verified 09/09/22 19:51 [From Macrobid] ngling nitrofurantoin AdvReac numbness,ti Verified 09/09/22 19:51 macrocrystalline ngling [From Macrobid] CHEMICAL DEPENDENCY HISTORY: The patient denies any tobacco, significant alcohol, marijuana, or illicit drug use. FAMILY PSYCHIATRIC/SUBSTANCE USE HISTORY: The patient reports that her mother had a psychotic break after the of her father. No other reported psychiatric history. SOCIAL HISTORY: Patient was born in [place] and raised in [place]. She is to her Zeyad for the past 11 years. They have 3 children together ages 15, 9, and 7. MENTAL STATUS EXAM: General Appearance: Patient appears to be stated age is alert, pleasant, and cooperative. Patient appears to have fair hygiene and grooming wearing hospital gown with fair eye contact. Behavior: Patient is calmly lying in bed without any agitated behavior. Speech: Patient's speech is fluent and nonpressured. Mood/Affect: Patient reports their mood is "doing pretty good", affect is congruent and euthymic Suicidality/Homicidality: Patient denies any suicidal or homicidal ideation, intention, and/or plan. Perceptions: Patient denies any visual hallucinations and denies any auditory hallucinations Though content/process: There is no evidence of any delusional thought content and thought process is linear and goal-directed. Memory and concentration: AOX3, grossly intact for the purposes of this session. Can spell "WORLD" backwards Judgment and insight: Fair IMPRESSIONS: Major depressive disorder New-onset seizure suspect secondary to Wellbutrin PLAN: -At this time patient DOES NOT meet criteria for inpatient psychiatric admission. Patient does not present an imminent risk of harm to self or others. She is not overtly manic or psychotic. -Would recommend the following medication changes/additions: After discussion with the patient, we have agreed to discontinue Wellbutrin due to its risk of lowering seizure threshold. The patient does not wish to start any new medication to augment her antidepressant at this time. She elected to trial being on Prozac alone. Continue Prozac 40 mg by mouth at bedtime for depression/anxiety -Patient does not require one-to-one sitter. -Psychiatry will sign off at this point, please contact with any questions. 09/10/22 13:45
--- NOTE | 2022-09-10 20:04 | HP ---
HISTORY AND PHYSICAL CHIEF COMPLAINT: Seizure disorder. HISTORY OF PRESENT ILLNESS: This is a 37-year-old woman with a past medical history of GERD, was noted to have some jerking reaction by the family yesterday. At that time, her was at work. The patient had generalized tonic-clonic seizure. The patient bit the tongue and was bleeding. The patient came to [facility] and was admitted for further evaluation and treatment. There is no history of any fever, rigors, or chills at this time. Dr. Rocha in the outpatient setting was cutting down the dose of bupropion and as well as Prozac. PAST MEDICAL HISTORY: Include MRSA and GERD. Rest of the history and rest of the chart are also reviewed. HOME MEDICATIONS: Reviewed include Singulair. Rest of the medications are noted. ALLERGIES: Reviewed include Bactrim. Rest of the allergies are noted. FAMILY HISTORY: History of hypoglycemia. SOCIAL HISTORY: No history of smoking. Occasional alcohol intake. REVIEW OF SYSTEMS: Fourteen-point review is negative except as mentioned earlier. PHYSICAL EXAMINATION: VITAL SIGNS: Pulse 84, blood pressure 135/80, respirations 15. HEENT: Conjunctivae are normal. NECK: No jugular venous distention. CARDIOVASCULAR: S1 and S2 muffled. RESPIRATORY: Breath sounds diminished at the bases. ABDOMEN: Soft and nontender. LEGS: No edema. No swelling. NERVOUS SYSTEM: No focal deficits. SKIN: No ulcers or rashes. JOINTS: No active deforming arthropathy. LABORATORY DATA: Noted. ASSESSMENT: 1. Acute tonic-clonic seizure disorder. 2. Increased WBC, possibly reactive. 3. History of methicillin-resistant Staphylococcus aureus. 4. Anxiety and depression. 5. Multiple medical issues. RECOMMENDATIONS AND DISCUSSION: In this 37-year-old woman presented with multiple complex medical issues, we will monitor the patient closely along with Neurology and as well as Psychiatry. Keppra has been initiated. EEG. Monitor closely. Prognosis is guarded. Further recommendations to follow. MMODL / IJN: [id number] /
[2022-09-10] MEDS ORDERED: MONTELUKAST 10 MG TAB PO SCH (21:00)
[2022-09-10] MEDS ORDERED: buPROPion XL 300 MG TAB.ER.24H PO SCH (21:00)
[2022-09-10] MEDS ORDERED: FLUoxetine HCL 20 MG CAP PO SCH (21:00)
[2022-09-10] MEDS ORDERED: LORATADINE 10 MG TAB PO SCH (21:00)
--- NOTE | 2022-09-10 22:07 | EEG ---
ELECTROENCEPHALOGRAM REPORT CLINICAL HISTORY: This is a 37-year-old woman, who presented to the ED because of seizure-like activity on 09/09/2022 witnessed by her son. The video EEG is obtained to evaluate for seizure epileptiform activity. RELEVANT MEDICATION: The patient is not on any antiseizure medication. EEG TYPE: A routine 21-channel EEG is performed with video using the 10/20 electrode placement system. DESCRIPTION: Wakefulness is only obtained. During awake state, the posterior-dominant rhythm consists of [id number] voltage of 10 hertz activity that is well modulated and well sustained. There is no physiological sleep architecture seen. . There is no focal slowing. Interictal and ictal is none. ACTIVATION PROCEDURE: Photic stimulation did not evoke a posterior driving response. There is no abnormality during the photic stimulation. Hyperventilation is not performed. CLINICAL INTERPRETATION: This is a normal routine EEG. There is no focal slowing, epileptiform discharges, or seizure on the EEG. A normal routine EEG does not rule out underlying epilepsy. Consider pursuing sleep deprived EEG or long-term EEG for further evaluation. Clinical correlation is recommended MMODL / IJN: [id number] / [facility]PITALFrancisco
[2022-09-10] MEDS: ACETAMINOPHEN TAB 325 MG TAB PO PRN (22:36)
[2022-09-11] MEDS: SODIUM CHLORIDE 0.9% 1,000 ML IV SCH (04:19)
[2022-09-11 07:34] VITALS: RESP 18
[2022-09-11] MEDS: levETIRAcetam 500 MG TAB PO SCH (08:44)
[2022-09-11] MEDS ORDERED: NON FORMULARY DRUG (Semaglutide [Wegovy] 0.5 MG/0.5 ML Each) SQ SCH (09:00)
--- NOTE | 2022-09-11 13:06 | MR ---
PRE AND POSTCONTRAST ENHANCED MRI OF THE BRAIN: CLINICAL HISTORY: seizure. family hx of brain cancer in 30's CONTRAST: Gadavist 12ml Multiplanar and multispin-echo imaging of the brain was performed both before and after the administr ation of contrast. The ventricles, basal cisterns and sulci overlying the cerebral convexities are within normal limits. There is no evidence for midline shift or mass effect. Acute intracranial hemorrhage or extra-axial collection is not evident. There are no abnormal areas of increased or decreased signal intensity within the brain parenchyma. Following contrast administration, there is no evidence for pathologic enhancement or enhancing mass. The paranasal sinuses and mastoid air cells are well-aerated. IMPRESSION: Unremarkable pre and postcontrast enhanced MRI of the brain.
--- NOTE | 2022-09-11 13:22 | P.PN ---
Subjective Progress Note Date: 09/11/22 The patient seen at bedside and is accompanied with her . No further seizure-like activity. She feels back to baseline. Objective - Vital Signs Vital signs: Vital Signs Temp 97.5 F L 09/11/22 07:00 Pulse 75 09/11/22 08:00 Resp 18 09/11/22 08:00 BP 108/68 09/11/22 07:00 Pulse Ox 98 09/11/22 07:00 FiO2 Intake & Output 09/10/22 09/11/22 09/11/22 18:59 06:59 18:59 Intake Total 118 318 Balance 118 318 Intake: Oral 118 318 Other: Voiding Method Toilet Toilet Toilet # Voids 2 2 - Exam GENERAL: The patient is lying in bed and is not in acute distress. NEUROLOGICAL: Higher mental function: The patient is awake, alert, oriented to self, place and time. Patient is following commands. No aphasia and no neglect. Cranial nerves: The pupils are round, equal and reactive to light and accommodation. Visual grove are full to confrontation throughout. Extraocular movement is intact no nystagmus is noted. Facial sensation is normal to touch throughout. The facial strength is normal throughout. Hearing is normal bilate rally to hand rub. Tongue is midline and moved [id number] without any difficulty. Has left mid/posterior tongue bite laterally. No dysarthria is noted. Shoulder shrug is normal bilaterally. Motor: The strength is 5 over 5 throughout. Normal tone and bulk. Cerebellum: Normal finger to nose bilaterally. Sensation: Sensation is normal to touch throughout. Reflexes (right/left): 2+ throughout. Plantars are downgoing bilaterally. Some of the workup during his hospital visit consisted of: Temperature has been within normal limits. Initial white blood cells 14.0 thousand and repeated is normal. Chemistry panel is within normal limits. CT of the head is reported as no acute intracranial process. I personally reviewed the CT report Urine drug screen is positive for benzos otherwise rest is not detected. Routine EEG is normal. There is no focal slowing, epileptiform discharges or seizure on the EEG. A normal routine EEG does not rule out underlying epilepsy. Recommend pursuing sleep deprived EEG or detention EEG for further evaluation. MRI of the brain with and without is reported as unremarkable pre-and post contrast enhanced MRI the brain. I personally reviewed the MRI and agree with the report. - Labs CBC & Chem 7: 09/10/22 06:51 09/10/22 06:51 Assessment and Plan Assessment: This is an 37-year-old woman with history of depression and anxiety who presented that because of seizure-like activity witnessed by the her son on 09/09/2022. She had that shaking of extremities unresponsive with the left lateral tongue and post ictal confusion. Patient has been having current episode of bilateral hand jerks and would drop objects for the past 1 year but been more frequent for the last 2-3 month period. New onset seizure (and her episodes of hand jerks with brief confusion for the past one year but more frequent for past 2-3 months are likely seizures).---no further seizure since this admission. History of depression History of anxiety Family history of brain cancer (father in his 30's and result had seizure and at young age) Plan: Routine EEG and MRI the brain with and without R normal. I recommend a sleep deprived EEG or long-term EEG as an outpatient for further evaluation. Continue Keppra 500 mg 1 tablet twice a day and notified the patient about the side effects of mood/behavior changes. If she does then will switch to possible Lamictal (which is slow titration) or Vimpat. On seizure precautions seizure pads Psychiatry team to modify her psychiatric medication and I recommend to avoid Wellbutrin since the lowers threshold of seizures. Wellbutrin was stopped. Patient was notified that per [place] DM because of her seizures, to avoid driving for 6 month until seizure-free, avoid heights, avoid swimming unassi sted, avoid heavy machinery. We'll defer the rest of the medical management to primary team Upon discharge recommend the patient to follow-up with a neurologist as an outpatient within 1-2 weeks. Plan discussed with the patient and her was at bedside No additional neurological workup is needed. Please notify neurology team of any further concerns. Time with Patient: Less than 30
[2022-09-11 13:54] VITALS: BP 142/88; PULSE 81; TEMP 97.7
--- NOTE | 2022-09-11 22:38 | P.DS ---
Providers Date of admission: 09/09/22 21:38 Attending physician: Earl Hendrickson Consults: 09/09/22 21:38 Consult Physician Routine Consulting Provider: Homar Keyes Consult Reason/Comments: sz Do you want consulting provider notified?: Yes 09/10/22 11:44 Consult Physician Routine Consulting Provider: Hiro Norris Consult Reason/Comments: need modification of medication Wellbutrin etc with hx seizure Do you want consulting provider notified?: Yes Primary care physician: Doc Rocha Hospital Course: Diagnoses: New onset seizure Depression, History of GERD Morbid obesity with BMI of 46.1 Hospital course: This is a pleasant 37 years old female who presents because of seizure. Patient had significant pain which was unremarkable for acute process. Patient tolerated by neurologist MRI of the brain obtained today was negative for acute process. Patient developed by psychiatrist, Wellbutrin was discontinued, patient informed with risks of increased seizure chances explant and she verbalized understanding and acceptance to discontinue Wellbutrin. Prescription for give provided for her. Denies any other symptoms. Patient is eager to go home today. at bedside Patient was cleared for discharge by neurologist. Problems and management plan were discussed with the patient and he verbalized understanding and acceptance Patient was found stable and can be discharged home in guarded prognosis however he needs follow-up as an outpatient. Patient was instructed to follow up with PCP within one week and patient agrees Physical exam Gen: patient is a AAOx3, no distress CVS: S1-S2, RRR, no murmur Lungs: B/L CTA, no wheezing Abdomen: soft, no distention, no tenderness, positive bowel sounds Extremity: no leg edema or induration Time spent more than 35 minutes Patient Condition at Discharge: Good Plan - Discharge Summary New Discharge Prescriptions: New levETIRAcetam [Keppra] 500 mg PO Q12HR 30 Days #60 tab Continue Montelukast [Singulair] 10 mg PO HS FLUoxetine HCL [PROzac] 40 mg PO HS Albuterol Inhaler [Ventolin Hfa Inhaler] 1 - 2 puff INHALATION RT-Q6H PRN PRN Reason: Shortness Of Breath Semaglutide [Wegovy] 0.5 mg SQ FR Cetirizine HCl 10 mg PO HS Discontinued buPROPion XL [Wellbutrin XL] 150 mg PO HS Discharge Medication List Albuterol Inhaler [Ventolin Hfa Inhaler] 1 - 2 puff INHALATION RT-Q6H PRN 09/09/22 [History] Cetirizine HCl 10 mg PO HS 09/09/22 [History] FLUoxetine HCL [PROzac] 40 mg PO HS 09/09/22 [History] Montelukast [Singulair] 10 mg PO HS 09/09/22 [History] Semaglutide [Wegovy] 0.5 mg SQ FR 09/09/22 [History] levETIRAcetam [Keppra] 500 mg PO Q12HR 30 Days #60 tab 09/11/22 [Rx] Follow up Appointment(s)/Referral(s): Doc Rocha MD [Primary Care Provider] - 1-2 days Roger Freire MD [Medical Doctor] - 1 Week (neurologist) Jarvis Jc MD [REFERRING] - 2 Weeks (neurologist) Patient Instructions/Handouts: Seizure/Epilepsy Discharge Instructions & Follow-Up Activity/Diet/Wound Care/Special Instructions: heart healthy diet activity is restricted till you see your doctor we recommend a sleep deprived EEG or long-term EEG as an outpatient for further evaluation.with your neurologist as outpatient Discharge Disposition: HOME SELF-CARE
== END 2022-09-11 15:13 | disposition home or self-care (01) | DRG 53 ==
LOC: EC 15:06 → 6NMEDSUR 21:38
PROVIDERS: ADMIT Hospitalist; ATTEND Hospitalist
DX: G40.409 Other generalized epilepsy and epileptic syndromes, not intractable, without status epilepticus (principal); E66.01 Morbid (severe) obesity due to excess calories; F32.A Depression, unspecified; F41.9 Anxiety disorder, unspecified; S01.512A Laceration without foreign body of oral cavity, initial encounter; Z68.42 Body mass index [BMI] 45.0-49.9, adult; Z79.899 Other long term (current) drug therapy; Z80.8 Family history of malignant neoplasm of other organs or systems; Z86.14 Personal history of Methicillin resistant Staphylococcus aureus infection; Z88.2 Allergy status to sulfonamides; Z88.8 Allergy status to other drugs, medicaments and biological substances; Z91.040 Latex allergy status
CPT/HCPCS: 36415; 70450; 70553; 80053; 80143; 80179; 80306; 80320; 83735; 84100; 85025; 93005; 95816